=== PATIENT | male | born 1995 | race Caucasian/White ===

== ENCOUNTER 2018-06-05 13:50 | Outpatient (CLI) | payer OTHER | END 2018-06-05 13:54 | disposition home or self-care (01) | LOC: RAD 13:50 | DX: M54.5 Low back pain (principal) ==

== ENCOUNTER 2020-10-23 07:24 | Outpatient (CLI) | payer OTHER | END 2020-10-23 07:29 | disposition home or self-care (01) | LOC: SONOGRAMA 07:24 → MAMO-SONO 07:30 | DX: E07.89 Other specified disorders of thyroid (principal) ==

== ENCOUNTER 2021-05-11 07:29 | Outpatient (CLI) | payer OTHER | END 2021-05-11 07:33 | disposition home or self-care (01) | LOC: RAD 07:29 | PROVIDERS: ATTEND Family Medicine | DX: M41.85 Other forms of scoliosis, thoracolumbar region (principal) ==

== ENCOUNTER 2021-09-24 07:50 | Outpatient (CLI) | payer OTHER | END 2021-09-24 07:53 | disposition home or self-care (01) | LOC: RAD 07:50 | PROVIDERS: ATTEND Family Medicine | DX: M41.9 Scoliosis, unspecified (principal) ==